=== PATIENT | male | born 1955 | race Caucasian/White ===

== ENCOUNTER 2019-05-17 08:04 | Inpatient (IN) ==
--- NOTE | 2019-04-28 18:00 | EKG Report ---
Test Performed on : 04/28/2019 5:52:17 PM Test Reason : PAT Blood Pressure : / mmHG Vent. Rate : 071 BPM Atrial Rate : 071 BPM P-R Int : 144 ms QRS Dur : 090 ms QT Int : 376 ms P-R-T Axes : 026 050 029 degrees QTc Int : 408 ms Normal sinus rhythm. Normal ECG No previous ECGs available Confirmed by Elias BECKETT, P.J.M ([id number]) on 04/28/2019 8:02:04 PM
[2019-04-28 18:21] LABS: URINE SOURCE CLEAN CATCH
[2019-04-28 18:29] LABS: BASO# 0.03 X1000 (0.0-0.2); BASO% 0.5 % (0.0-0.8); EOS# 0.15 X1000 (0.0-0.7); EOS% 2.5 % (0.0-10.0); HEMATOCRIT 38.4 % (42.0-52.0); HEMOGLOBIN 12.4 g/dL (14.0-18.0); LYMPH# 1.44 X1000 (1.2-3.4); LYMPH% 23.6 % (20.5-51.1); MCH 30.6 PG (27-31); MCHC 32.3 g/dL (33-37); MCV 94.8 FL (81-99); MONO# 0.76 X1000 (0.11-0.59); MONO% 12.5 % (1.7-9.3); MPV 8.4 FL (7.4-10.4); NEUT# 3.72 X1000 (1.4-6.5); NEUT% 60.9 % (42.2-75.2); PLT 259 X1000 (130-400); RBC 4.05 XMIL (4.7-6.1); RDW 13.2 % (11.5-14.5)
[2019-04-28 18:32] LABS: BILIRUBIN URINE NEGATIVE (NEGATIVE); BLOOD URINE SMALL (NEGATIVE); COLOR YELLOW; GLUCOSE URINE NEGATIVE (NEGATIVE); KETONE URINE NEGATIVE (NEGATIVE); LEUKOCYTES URINE NEGATIVE (NEGATIVE); NITRITE URINE NEGATIVE (NEGATIVE); PH URINE 6.5; PROTEIN URINE TRACE mg/dL (NEGATIVE); TURBIDITY URINE CLEAR (CLEAR); UROBILINOGEN URINE 2 mg/dL (NORMAL)
[2019-04-28 18:36] LABS: UR EPITHELIAL CELLS <10 /HPF (<10); URINE BACTERIA NEGATIVE /HPF; URINE RBC <10 /HPF (<10); URINE WBC <10 /HPF (<10)
[2019-04-28 18:37] LABS: PROTIME 13.3 Seconds (11.0-16.0)
[2019-04-28 18:38] LABS: PTT 26.7 Seconds (22.3-41.8)
[2019-04-28 18:39] LABS: HEMOGLOBIN A1C 6.1 % (4.8-6.0)
[2019-04-28 18:42] LABS: AGAP 13; BUN 18 mg/dL (8-22); CALCIUM 9.6 mg/dL (8.8-10.2); CHLORIDE 101 mmol/L (98-107); COSMO 285; ESTIMATED GFR > 60; GLUCOSE 93 mg/dL (70-104); POTASSIUM 4.2 mmol/L (3.5-5.1); SODIUM 142 mmol/L (136-145); TCO2 28 mmol/L (25-35)
[2019-05-17] MEDS ORDERED: COLACE ONE (08:41)
[2019-05-17] MEDS ORDERED: LR 1,000 ML ONE (08:42)
[2019-05-17] MEDS ORDERED: PEPCID ONE (08:42)
[2019-05-17] MEDS ORDERED: REGLAN ONE (08:42)
[2019-05-17] MEDS ORDERED: KEFZOL 1 GM/D5W 2 GM/100 ML IVPB ONE (08:42)
[2019-05-17] MEDS ORDERED: LYRICA ONE (08:42)
[2019-05-17] MEDS ORDERED: ROBINUL ONE (09:58)
[2019-05-17] MEDS ORDERED: DECADRON ONE (09:58)
[2019-05-17] MEDS ORDERED: DIPRIVAN 1% ONE (09:59)
[2019-05-17] MEDS ORDERED: FENTANYL ONE (09:59)
[2019-05-17] MEDS ORDERED: OFIRMEV 1000 MG/ISOTONIC SOLN 1,000 MG/100 ML BOTTLE ONE (10:00)
[2019-05-17] MEDS ORDERED: MARCAINE 0.25% PF ONE (10:43)
[2019-05-17] MEDS ORDERED: DURAMORPH ONE (10:43)
[2019-05-17] MEDS ORDERED: TORADOL ONE (10:43)
[2019-05-17] MEDS ORDERED: NEOSPORIN G.U. IRRIGANT ONE (10:44)
[2019-05-17] MEDS ORDERED: CYKLOKAPRON 1,000 MG/NS 1,000 MG/100 ML IVPB ONE (10:44)
[2019-05-17] MEDS ORDERED: SODIUM CHLORIDE 0.9% ONE (10:44)
[2019-05-17] MEDS ORDERED: EXPAREL 1.3% ONE (10:44)
[2019-05-17] MEDS ORDERED: VERSED ONE (11:37)
[2019-05-17] MEDS ORDERED: EPHEDRINE ONE (12:24)
[2019-05-17 12:39] LABS: URINE SOURCE CATH
[2019-05-17] MEDS ORDERED: ZOFRAN ONE (12:45)
[2019-05-17] MEDS ORDERED: XYLOCAINE-MPF 2% ONE (12:50)
[2019-05-17 13:02] LABS: BILIRUBIN URINE NEGATIVE (NEGATIVE); BLOOD URINE TRACE (NEGATIVE); COLOR STRAW; GLUCOSE URINE NEGATIVE (NEGATIVE); KETONE URINE NEGATIVE (NEGATIVE); LEUKOCYTES URINE NEGATIVE (NEGATIVE); NITRITE URINE NEGATIVE (NEGATIVE); PH URINE 7.5; PROTEIN URINE NEGATIVE (NEGATIVE); SP GRAVITY URINE 1.007; TURBIDITY URINE CLEAR (CLEAR); UROBILINOGEN URINE NORMAL (NORMAL)
[2019-05-17 13:04] LABS: UR EPITHELIAL CELLS >10 /HPF (<10); URINE BACTERIA NEGATIVE /HPF; URINE RBC <10 /HPF (<10); URINE WBC <10 /HPF (<10)
[2019-05-17] MEDS: DILAUDID ONE ×4 (14:36→15:00)
[2019-05-17] MEDS ORDERED: NS 1,000 ML ONE (14:56)
[2019-05-17] MEDS ORDERED: OXY IR ONE (15:28)
[2019-05-17] MEDS ORDERED: OXY IR PO PRN ×2 (15:45)
[2019-05-17] MEDS ORDERED: ZOFRAN ODT PO PRN (15:45)
[2019-05-17] MEDS ORDERED: NS 1,000 ML IV SCH (15:45)
[2019-05-17] MEDS ORDERED: ZOFRAN IV PRN (15:45)
[2019-05-17] MEDS ORDERED: MORPHINE IV PRN ×3 (15:45)
[2019-05-17] MEDS ORDERED: MILK OF MAGNESIA PO PRN (15:45)
[2019-05-17] MEDS ORDERED: FLU VACCINE IM ONE (16:59)
[2019-05-17] MEDS ORDERED: CYKLOKAPRON 1,000 MG in NS 100 ML IV ONE (18:20)
[2019-05-17] MEDS ORDERED: PNEUMOVAX 23 IM ONE (18:30)
--- NOTE | 2019-05-17 18:56 | OPERATIVE NOTE ---
PROCEDURE DATE: 05/17/2019 PREOPERATIVE DIAGNOSIS: Left hip degenerative joint disease. POSTOPERATIVE DIAGNOSIS: Left hip degenerative joint disease. PROCEDURE PERFORMED: Left anterior total hip arthroplasty using [facility] size 12 lateral offset stem with a neutral neck length, 36 mm head, a 54 mm hemispherical shell with two 6.5 cancellous screws of 35 mm. A 36 mm inside diameter acetabular liner. ANESTHESIA: General. SURGEON: Antione Hayward MD DRIVER STARTING GATE: OLESYA Ruiz, who was present throughout the case and whose assistance was critical for successful completion of the case. ESTIMATED BLOOD LOSS: Minimal. SPECIMENS REMOVED: DESCRIPTION OF PROCEDURE: The patient was brought to the operative suite and placed in supine position. After successful administration of general anesthesia, the patient was placed on the OSI table in the usual position for the left hip. The left hip was then prepped and draped in the usual sterile fashion. A longitudinal incision was made beginning 3 cm distal and 3 cm lateral to the anterior superior iliac spine, extending distally and slightly laterally 8 cm. It was dissected sharply through the skin and subcutaneous tissue down to the tensor fascia. Tensor fascia was incised and dissected bluntly down deep, tensor fascia, deep tensor fascia was incised. The circumflex vessels electrocauterized exposing the anterior capsule. A T capsulotomy was performed exposing the femoral neck. Femoral neck cut was made with oscillating saw. Femoral head was removed with power corkscrew. The labrum was resected. The acetabulum was serially reamed to a 54 to accept a 54 cup. The 54 cup was then driven into place in the proper amount inclination and anteversion and verified to be in good position, two 6.5, 35 mm screws were placed 1 superiorly. 1 posterosuperiorly and then a 36 mm inside diameter liner was locked onto the shell. Attention was then directed to the femur. It was externally rotated, extended, adducted, and elevated out of the wound with the hook on the OSI bed. The lateral neck was rongeured. The canal was serially broached to a size 12. A size 12 high offset neutral neck length 36 mm head was trialed and found to be excellent leg length fit and fill of the stem offset and stability if the hip. The trial was then removed. The definitive stem was seated onto the femur and then the ceramic head was seated on the Pack taper. The hip was again reduced. It was again found to be in excellent position. The hip was copiously irrigated with normal saline containing irrigant and Vashe irrigation as well as I copiously infiltrated the hip with Exparel including the posterior capsule, anterior capsule, anterior musculature, and subcutaneous tissue. The anterior capsule was repaired with 0 V-Loc. The tensor fascia was closed with 0 V-Loc. The skin edge approximated with 2-0 Vicryl, closed with 4-0 Monocryl and Prineo. Sterile dressing applied. The patient tolerated the procedure well without complication. At the end the procedure, all counts were correct x2. The patient was transferred to the recovery room in stable condition. cc: Antione Hayward MD
[2019-05-17] MEDS ORDERED: HYDROCHLOROTHIAZIDE PO SCH (21:00)
[2019-05-17] MEDS ORDERED: CARDIZEM PO SCH (21:00)
[2019-05-17] MEDS ORDERED: ZOLOFT PO SCH (21:00)
[2019-05-17] MEDS ORDERED: PRILOSEC PO SCH (21:00)
[2019-05-17] MEDS ORDERED: MIRAPEX PO SCH (21:00)
[2019-05-17] MEDS ORDERED: LIPITOR PO SCH (21:00)
[2019-05-17] MEDS: PERIDEX MT SCH (21:13)
[2019-05-17] MEDS: ULTRAM PO SCH (21:14)
[2019-05-17] MEDS: TYLENOL PO SCH (21:18)
[2019-05-17] MEDS: LYRICA PO SCH (21:19)
[2019-05-17] MEDS: COLACE PO SCH (21:19)
[2019-05-17] MEDS: KEFZOL 2 GM/D5W 2 GM/50 ML IVPB IV SCH (21:19)
[2019-05-18] MEDS: ULTRAM PO SCH ×2 (03:35→09:24)
[2019-05-18] MEDS: TYLENOL PO SCH ×2 (03:35→09:16)
[2019-05-18] MEDS: KEFZOL 2 GM/D5W 2 GM/50 ML IVPB IV SCH (03:35)
[2019-05-18] MEDS ORDERED: XARELTO PO SCH (06:00)
[2019-05-18 06:57] LABS: HEMATOCRIT 31.5 % (42.0-52.0); HEMOGLOBIN 10.2 g/dL (14.0-18.0)
[2019-05-18 07:10] LABS: AGAP 12; BUN 15 mg/dL (8-22); CALCIUM 8.5 mg/dL (8.8-10.2); CHLORIDE 100 mmol/L (98-107); COSMO 277; CREATININE 0.9 mg/dL (0.7-1.2); ESTIMATED GFR > 60; GLUCOSE 137 mg/dL (70-104); POTASSIUM 3.9 mmol/L (3.5-5.1); SODIUM 137 mmol/L (136-145); TCO2 25 mmol/L (25-35)
[2019-05-18] MEDS ORDERED: SALINE LOCK IV FLUID XX ONE (07:46)
[2019-05-18] MEDS ORDERED: MOBIC PO SCH (09:00)
[2019-05-18] MEDS ORDERED: DECADRON IV ONE (09:00)
[2019-05-18] MEDS ORDERED: PEPCID PO SCH (09:00)
[2019-05-18] MEDS: PERIDEX MT SCH (09:15)
[2019-05-18] MEDS: COLACE PO SCH (09:16)
[2019-05-18] MEDS: LYRICA PO SCH (09:24)
[2019-05-18 12:11] VITALS: BP 114/57
--- NOTE | 2019-05-18 13:58 | ORTHOPAEDICS PROGRESS NOTE ---
DATE: 05/18/2019 SUBJECTIVE: Henry Morse is a 63-year-old male postoperative day 1 from a left anterior total hip arthroplasty. He has no complaints. Has not walked yet with physical therapy, however. OBJECTIVE: He is a well-developed, well-nourished male. He is cooperative with exam. His wound is clean, dry, and intact. His leg is soft. No sign of infection or deep venous thrombosis. His hemoglobin is 10.2, his hematocrit is 31.5. vital signs are stable. He is afebrile. ASSESSMENT: Stable left anterior total hip arthroplasty. PLAN: We will get therapy to work with him today. If he does well with therapy, he can possibly go home later this evening. cc: Antione Hayward MD
--- NOTE | 2019-05-19 11:37 | DISCHARGE SUMMARY ---
ADMISSION DATE: 05/17/2019 DISCHARGE DATE: 05/18/2019 DISCHARGE DIAGNOSIS: 1. Left hip degenerative joint disease status post left anterior total hip arthroplasty. DISCHARGE MEDICATIONS: For history of medications, see discharge medication list. DISPOSITION: The patient discharged home with home health. Instructed to return for any signs or symptoms of infection, deep venous thrombosis. Instructed to return to see Dr. Hayward next . HOSPITAL COURSE: On the day of admission, patient underwent a left anterior total hip arthroplasty. His postoperative course was unremarkable at discharge. He is afebrile, tolerating a regular diet, ambulating well with physical therapy. His wound is clean, dry, intact without sign of infection. He is discharged home in stable condition. Instructed to follow up as described above. cc: Antione Hayward MD
== END 2019-05-18 14:15 | disposition home or self-care (01) | DRG 470 ==
LOC: SURHOLD 08:04 → 4N 12:46
PROVIDERS: ADMIT Orthopaedic Surgery; ATTEND Orthopaedic Surgery

== ENCOUNTER 2019-07-05 03:25 | Inpatient (IN) ==
[2019-07-01 17:09] LABS: URINE SOURCE CLEAN CATCH
[2019-07-01 17:26] LABS: BASO# 0.08 X1000 (0.0-0.2); BASO% 1.4 % (0.0-0.8); EOS# 0.19 X1000 (0.0-0.7); EOS% 3.4 % (0.0-10.0); HEMOGLOBIN 11.2 g/dL (14.0-18.0); LYMPH# 1.65 X1000 (1.2-3.4); LYMPH% 29.4 % (20.5-51.1); MCH 29.6 PG (27-31); MCV 92.6 FL (81-99); MONO# 0.48 X1000 (0.11-0.59); MONO% 8.5 % (1.7-9.3); MPV 8.7 FL (7.4-10.4); NEUT# 3.22 X1000 (1.4-6.5); NEUT% 57.3 % (42.2-75.2); PLT 302 X1000 (130-400); RBC 3.78 XMIL (4.7-6.1); RDW 14.1 % (11.5-14.5); WBC 5.62 X1000 (4.8-10.8)
[2019-07-01 17:27] LABS: BILIRUBIN URINE NEGATIVE (NEGATIVE); BLOOD URINE TRACE (NEGATIVE); COLOR YELLOW; GLUCOSE URINE NEGATIVE (NEGATIVE); KETONE URINE NEGATIVE (NEGATIVE); LEUKOCYTES URINE NEGATIVE (NEGATIVE); NITRITE URINE NEGATIVE (NEGATIVE); PROTEIN URINE TRACE mg/dL (NEGATIVE); SP GRAVITY URINE 1.027; TURBIDITY URINE CLEAR (CLEAR); UROBILINOGEN URINE NORMAL (NORMAL)
[2019-07-01 17:29] LABS: UR EPITHELIAL CELLS <10 /HPF (<10); URINE BACTERIA NEGATIVE /HPF; URINE RBC <10 /HPF (<10); URINE WBC <10 /HPF (<10)
[2019-07-01 17:34] LABS: INR 0.99; PROTIME 13.2 Seconds (11.0-16.0)
[2019-07-01 17:35] LABS: PTT 28.1 Seconds (22.3-41.8)
[2019-07-01 17:50] LABS: AGAP 4; BUN 25 mg/dL (8-22); CALCIUM 9.4 mg/dL (8.8-10.2); CHLORIDE 105 mmol/L (98-107); COSMO 286; CREATININE 0.9 mg/dL (0.7-1.2); ESTIMATED GFR > 60; GLUCOSE 102 mg/dL (70-104); POTASSIUM 4.3 mmol/L (3.5-5.1); SODIUM 141 mmol/L (136-145); TCO2 32 mmol/L (25-35)
[2019-07-05] MEDS ORDERED: PEPCID ONE (07:17)
[2019-07-05] MEDS ORDERED: LYRICA ONE (07:17)
[2019-07-05] MEDS ORDERED: COLACE ONE (07:17)
[2019-07-05] MEDS ORDERED: LR 1,000 ML ONE (07:18)
[2019-07-05] MEDS ORDERED: KEFZOL 1 GM/D5W 2 GM/100 ML IVPB ONE (07:18)
[2019-07-05] MEDS ORDERED: DIPRIVAN 1% ONE (07:59)
[2019-07-05] MEDS ORDERED: FENTANYL ONE (08:01)
[2019-07-05] MEDS ORDERED: SODIUM CHLORIDE 0.9% ONE (09:30)
[2019-07-05] MEDS ORDERED: TORADOL ONE (09:30)
[2019-07-05] MEDS ORDERED: CYKLOKAPRON 1,000 MG/NS 1,000 MG/100 ML IVPB ONE ×2 (09:30→11:40)
[2019-07-05] MEDS ORDERED: MARCAINE 0.5% PF ONE (09:30)
[2019-07-05] MEDS ORDERED: DURAMORPH ONE (09:30)
[2019-07-05] MEDS ORDERED: NEOSPORIN G.U. IRRIGANT ONE (09:31)
[2019-07-05] MEDS ORDERED: EXPAREL 1.3% ONE (09:31)
[2019-07-05] MEDS ORDERED: XYLOCAINE-MPF 2% ONE (10:19)
[2019-07-05] MEDS ORDERED: EPHEDRINE ONE (10:20)
[2019-07-05] MEDS ORDERED: ZOFRAN ONE (10:27)
[2019-07-05] MEDS ORDERED: DECADRON ONE (10:27)
[2019-07-05] MEDS ORDERED: OFIRMEV 1000 MG/ISOTONIC SOLN 1,000 MG/100 ML BOTTLE ONE (10:41)
[2019-07-05] MEDS ORDERED: ROBINUL ONE (10:42)
[2019-07-05 10:57] LABS: URINE SOURCE CATH
[2019-07-05 11:03] LABS: BILIRUBIN URINE NEGATIVE (NEGATIVE); BLOOD URINE SMALL (NEGATIVE); COLOR STRAW; GLUCOSE URINE NEGATIVE (NEGATIVE); KETONE URINE NEGATIVE (NEGATIVE); LEUKOCYTES URINE NEGATIVE (NEGATIVE); NITRITE URINE NEGATIVE (NEGATIVE); PROTEIN URINE NEGATIVE (NEGATIVE); SP GRAVITY URINE 1.007; TURBIDITY URINE CLEAR (CLEAR); UROBILINOGEN URINE NORMAL (NORMAL)
[2019-07-05 11:05] LABS: UR EPITHELIAL CELLS <10 /HPF (<10); URINE BACTERIA NEGATIVE /HPF; URINE RBC <10 /HPF (<10); URINE WBC <10 /HPF (<10)
[2019-07-05] MEDS ORDERED: DILAUDID ONE (11:29)
[2019-07-05] MEDS: DILAUDID ONE ×2 (12:39→12:42)
[2019-07-05] MEDS ORDERED: NS 1,000 ML ONE (12:42)
[2019-07-05] MEDS ORDERED: MILK OF MAGNESIA PO PRN (13:00)
[2019-07-05] MEDS ORDERED: MORPHINE IV PRN ×3 (13:00)
[2019-07-05] MEDS ORDERED: ZOFRAN IV PRN (13:00)
[2019-07-05] MEDS ORDERED: NS 1,000 ML IV SCH (13:00)
[2019-07-05] MEDS ORDERED: ZOFRAN ODT PO PRN (13:00)
[2019-07-05] MEDS ORDERED: OXY IR PO PRN ×2 (13:00)
[2019-07-05] MEDS: ULTRAM PO SCH (18:15)
[2019-07-05] MEDS: KEFZOL 2 GM/D5W 2 GM/50 ML IVPB IV SCH (18:15)
[2019-07-05] MEDS: TYLENOL PO SCH (18:15)
[2019-07-05] MEDS: LYRICA PO SCH (21:17)
[2019-07-05] MEDS: PERIDEX MT SCH (21:17)
[2019-07-06] MEDS: TYLENOL PO SCH ×3 (00:10→10:01)
[2019-07-06] MEDS: ULTRAM PO SCH ×3 (00:10→10:01)
[2019-07-06] MEDS: KEFZOL 2 GM/D5W 2 GM/50 ML IVPB IV SCH (01:39)
--- NOTE | 2019-07-06 04:03 | OPERATIVE NOTE ---
PROCEDURE DATE: 07/05/2019 PREOPERATIVE DIAGNOSIS: Right hip degenerative joint disease. POSTOPERATIVE DIAGNOSIS: Right hip degenerative joint disease. PROCEDURE PERFORMED: Right anterior total hip arthroplasty using a [facility] size 12 high offset stem with a -4 neck length, 36 mm head, a 54 mm hemispherical shell with two 6.5 cancellous screws of 40 and 30 mm and a 36 mm inside diameter liner. ANESTHESIA: General. SURGEON: Antione Hayward MD. SPECIAL EVENTS DIRECTOR: Jonny. COMPLICATIONS: None. ESTIMATED BLOOD LOSS: 300 mL. DESCRIPTION OF PROCEDURE: The patient was brought to the operative suite and placed in supine position. After successful administration of general anesthesia, patient was placed on the OSI table in the usual position for right hip. The right hip was then prepped and draped in the usual sterile fashion. A longitudinal incision was made beginning 3 cm distal and 3 cm lateral to the anterior superior iliac spines and extending distally and slightly laterally 8 cm, dissected sharply through the skin and subcutaneous tissue down to tensor fascia. Tensor fascia was incised and dissected bluntly to down deep tensor fascia. Deep tensor fascia was incised and circumflex vessels electrocauterized exposing the anterior capsule. T capsulotomy was performed exposing the femoral neck. The femoral neck cut was made with an oscillating saw. The femoral head was removed with a power corkscrew. The labrum was resected and osteophytes were resected. The acetabulum was serially reamed to a 54 to accept a 54 cup. The 54 cup was then driven into place in the proper amount of inclination and anteversion, and then two 6.5 cancellous screws were placed, 40 mm posterior superiorly and a 30 mm superiorly. Then the acetabular liner was locked onto the shell and attention directed was directed to the femur. The femur was externally rotated, extended, adducted, and elevated out of the wound with the hook, on the OSI bed the lateral neck was rongeured. The canal was serially broached to a size 12. A size 12 high offset stem, -4 neck length was trialed and found to be excellent leg length to fit and fill the stem, offset, and stability of the hip. The trial was then removed. Definitive stem was seated on the femur and the ceramic head was seated on the Pack taper and the hip was reduced. It was again found to be in excellent position. The hip was copiously infiltrated with Exparel, including the posterior capsule, anterior capsule, anterior musculature, and subcutaneous tissue. The hip was copiously irrigated with normal saline and with the irrigant and Vashe irrigation. The anterior capsule was repaired with 0 V-Loc. The tensor fascia was closed with 0 V-Loc. The skin edge approximated to a Vicryl and closed with 4-0 Monocryl and a Prineo dressing, sterile dressing was applied. The patient tolerated the procedure well without complication. At the end of the procedure, all counts were correct x2. The patient was transferred to the recovery room in stable condition. cc: Antione Hayward MD MTDD
[2019-07-06] MEDS: PRILOSEC PO SCH ×2 (05:58→08:09)
[2019-07-06] MEDS ORDERED: XARELTO PO SCH (06:00)
[2019-07-06 07:14] LABS: HEMATOCRIT 29.9 % (42.0-52.0); HEMOGLOBIN 9.2 g/dL (14.0-18.0)
[2019-07-06 07:33] LABS: AGAP 9; BUN 18 mg/dL (8-22); CALCIUM 8.6 mg/dL (8.8-10.2); CHLORIDE 103 mmol/L (98-107); COSMO 279; ESTIMATED GFR > 60; GLUCOSE 151 mg/dL (70-104); POTASSIUM 4.7 mmol/L (3.5-5.1); SODIUM 137 mmol/L (136-145); TCO2 25 mmol/L (25-35)
[2019-07-06] MEDS ORDERED: SALINE LOCK IV FLUID XX ONE (07:49)
[2019-07-06 08:08] VITALS: BP 122/58
[2019-07-06] MEDS ORDERED: COLACE PO SCH (09:00)
[2019-07-06] MEDS ORDERED: MOBIC PO SCH (09:00)
[2019-07-06] MEDS ORDERED: CARDIZEM CD PO SCH (09:00)
[2019-07-06] MEDS ORDERED: MIRAPEX PO SCH (09:00)
[2019-07-06] MEDS ORDERED: HYDROCHLOROTHIAZIDE PO SCH (09:00)
[2019-07-06] MEDS ORDERED: DECADRON IV ONE (09:00)
[2019-07-06] MEDS ORDERED: LIPITOR PO SCH (09:00)
[2019-07-06] MEDS ORDERED: ZOLOFT PO SCH (09:00)
[2019-07-06] MEDS: PERIDEX MT SCH (09:56)
[2019-07-06] MEDS: LYRICA PO SCH (09:57)
--- NOTE | 2019-07-06 21:03 | DISCHARGE SUMMARY ---
ADMISSION DATE: 07/05/2019 DISCHARGE DATE: 07/06/2019 DISCHARGE DIAGNOSIS: Right hip degenerative joint disease status post right anterior total hip arthroplasty. DISCHARGE MEDICATION: See discharge medication list. DISPOSITION: The patient discharged home with home health physical therapy. Instructed to return for any signs or symptoms of infection or deep venous thrombosis. Instructed to return to see Dr. Hayward next . HOSPITAL COURSE: On the day of admission, patient underwent a right anterior total hip arthroplasty. His postoperative course was unremarkable. At discharge, he is afebrile, tolerating regular diet, ambulating well with physical therapy. His wound is clean, dry, intact without sign of infection. His hematocrit is 29.9. Discharged home in stable condition. Instructed to follow up as described above. cc: Antione Hayward MD
== END 2019-07-06 12:13 | disposition home or self-care (01) | DRG 470 ==
LOC: SURHOLD 03:25 → 4N 12:04
PROVIDERS: ADMIT Orthopaedic Surgery; ATTEND Orthopaedic Surgery